=== PATIENT | female | born 1955 | race Two or more races ===

== ENCOUNTER 2019-08-14 09:43 | Emergency (ER) | payer SELFPAY ==
[~2019-08-14] VITALS: Ht 160 cm; Wt 90.7 kg
[2019-08-14 09:53] VITALS: BP 154/61
[2019-08-14] MEDS ORDERED: METHOCARBAMOL 500 MG TAB PO ONE (11:45)
[2019-08-14] MEDS ORDERED: ACETAMINOPHEN 325 MG TAB PO ONE (11:45)
== END 2019-08-14 12:44 | disposition home or self-care (01) ==
LOC: ER 09:45
DX: M54.16 Radiculopathy, lumbar region (principal); M25.562 Pain in left knee; M19.90 Unspecified osteoarthritis, unspecified site; E11.9 Type 2 diabetes mellitus without complications; I10 Essential (primary) hypertension; Z88.6 Allergy status to analgesic agent
CPT/HCPCS: 72100; 73562